=== PATIENT | female | born 1975 | race Caucasian/White ===

== ENCOUNTER 2023-12-28 18:57 | Emergency (ER) | payer MEDICARE, MEDICAID ==
[~2023-12-28] VITALS: Ht 167.6 cm; Wt 71.6 kg
[~2023-12-28 18:57] MED LIST: LEVE750T5 PO
[2023-12-28] MEDS ORDERED: OXYC1TAB23 PO (19:12)
[2023-12-28] MEDS: TAMSULOSIN 0.4 MG CAP PO ONE (22:50)
[2023-12-28] MEDS: ONDANSETRON 4MG 2ML VIAL IV ONE (23:01)
[2023-12-28] MEDS: NS 1,000 ML IV ONE (23:01)
[2023-12-28] MEDS: MORPHINE 2 MG/ML 1ML VIAL IV ONE (23:02)
[2023-12-28 23:23] LABS: BASO # 0.1 10^3/uL (0.0-0.2); BASO % 1.2 % (0.0-1.0); EOS # 0.2 10^3/uL (0.0-0.5); EOS % 2.6 % (0.0-3.0); HEMATOCRIT 34.5 % (36.0-47.0); HEMOGLOBIN 11.9 g/dl (12.0-15.5); LYMPH # 2.4 10^3/uL (1.5-5.0); LYMPH % 25.6 % (24.0-44.0); MEAN CORPUSCULAR HEMOGLOBIN 39.9 pg (27.0-33.0); MEAN CORPUSCULAR HGB CONC 34.5 g/dl (32.0-36.5); MONO % 10.4 % (2.0-8.0); NEUTROPHILS # 5.6 10^3/uL (1.5-8.5); PLATELET COUNT, AUTOMATED 418 10^3/uL (150-450); RED BLOOD COUNT 2.98 10^6/uL (4.00-5.40); WHITE BLOOD COUNT 9.3 10^3/uL (4.0-10.0)
[2023-12-28 23:24] LABS: MEAN CORPUSCULAR VOLUME 115.8 fl (80.0-96.0)
[2023-12-28 23:42] LABS: LIPASE 31 U/L (12-53)
[2023-12-28 23:44] LABS: ALBUMIN 3.8 G/DL (3.2-5.2); ALKALINE PHOSPHATASE 247 U/L (46-116); ALT/SGPT 100 U/L (7.0-40); AST/SGOT 41 U/L (<34); BILIRUBIN,DIRECT 0.1 MG/DL (<0.4); BILIRUBIN,TOTAL 0.2 MG/DL (0.3-1.2); BLOOD UREA NITROGEN 14 MG/DL (9-23); CALCIUM LEVEL 9.4 MG/DL (8.5-10.1); CARBON DIOXIDE LEVEL 28 MMOL/L (20-31); CHLORIDE LEVEL 103 MMOL/L (98-107); CREATININE FOR GFR 0.46 MG/DL (0.55-1.30); GLOMERULAR FILTRATION RATE > 60.0 (>58); GLUCOSE, FASTING 87 MG/DL (60-100); POTASSIUM SERUM 4.2 MMOL/L (3.5-5.1); SODIUM LEVEL 137 MMOL/L (136-145); TOTAL PROTEIN 7.1 G/DL (5.7-8.2)
[2023-12-29] MEDS: MORPHINE 4 MG/ML 1ML VIAL IV ONE ×2 (02:10→04:47)
[2023-12-29 05:58] LABS: BASO # 0.1 10^3/uL (0.0-0.2); BASO % 1.4 % (0.0-1.0); EOS # 0.3 10^3/uL (0.0-0.5); EOS % 3.9 % (0.0-3.0); HEMATOCRIT 32.3 % (36.0-47.0); HEMOGLOBIN 11.1 g/dl (12.0-15.5); LYMPH # 2.2 10^3/uL (1.5-5.0); LYMPH % 30.7 % (24.0-44.0); MEAN CORPUSCULAR HEMOGLOBIN 39.9 pg (27.0-33.0); MEAN CORPUSCULAR HGB CONC 34.4 g/dl (32.0-36.5); NEUTROPHILS # 3.6 10^3/uL (1.5-8.5); NEUTROPHILS % 49.7 % (36.0-66.0); PLATELET COUNT, AUTOMATED 389 10^3/uL (150-450); RED BLOOD COUNT 2.78 10^6/uL (4.00-5.40); WHITE BLOOD COUNT 7.3 10^3/uL (4.0-10.0)
[2023-12-29 06:03] LABS: MEAN CORPUSCULAR VOLUME 116.2 fl (80.0-96.0)
[2023-12-29] MEDS: diazePAM 10MG/2ML SYRINGE IV ONE (06:04)
[2023-12-29 06:29] LABS: LIPASE 27 U/L (12-53)
[2023-12-29 06:35] LABS: ALBUMIN 3.3 G/DL (3.2-5.2); ALKALINE PHOSPHATASE 219 U/L (46-116); ALT/SGPT 85 U/L (7.0-40); AST/SGOT 40 U/L (<34); BILIRUBIN,DIRECT 0.1 MG/DL (<0.4); BILIRUBIN,TOTAL 0.3 MG/DL (0.3-1.2); BLOOD UREA NITROGEN 10 MG/DL (9-23); CALCIUM LEVEL 8.9 MG/DL (8.5-10.1); CARBON DIOXIDE LEVEL 28 MMOL/L (20-31); CHLORIDE LEVEL 105 MMOL/L (98-107); CREATININE FOR GFR 0.49 MG/DL (0.55-1.30); GLOMERULAR FILTRATION RATE > 60.0 (>58); GLUCOSE, FASTING 80 MG/DL (60-100); POTASSIUM SERUM 4.2 MMOL/L (3.5-5.1); SODIUM LEVEL 138 MMOL/L (136-145); TOTAL PROTEIN 6.3 G/DL (5.7-8.2)
[2023-12-29] MEDS ORDERED: HOME MED LIST COMPLETE! XX SCH (08:00)
[2023-12-29] MEDS ORDERED: DICY-61 PO (12:28)
[2023-12-29 12:42] VITALS: BP 107/55; TEMP 97.6; O2SAT 100
== END 2023-12-29 12:45 | disposition home or self-care (01) ==
LOC: M ED 18:57
DX: R10.9 Unspecified abdominal pain (principal); N20.0 Calculus of kidney; Z98.84 Bariatric surgery status; Z87.891 Personal history of nicotine dependence; Z90.49 Acquired absence of other specified parts of digestive tract; Z79.899 Other long term (current) drug therapy; Z88.5 Allergy status to narcotic agent; Z88.8 Allergy status to other drugs, medicaments and biological substances
CPT/HCPCS: 74176; 74181; 76705; 80048; 80076; 81001; 83605; 83690; 85025; 87086; 87088; 87486; 87581; 87633; 87798; 96374; 96375; 96376; 99285; J2405; J3360

== ENCOUNTER → 2024-01-02 | Outpatient (REF) | payer MEDICARE, MEDICAID ==
[~2024-01-02] MED LIST changes: +DICY-61 PO; +OXYC1TAB23 PO
[2024-01-02 12:56] LABS: APPEARANCE, URINE HAZY (CLEAR); BACTERIA, URINE AUTO NEGATIVE (NEGATIVE); BILIRUBIN, URINE AUTO NEGATIVE (NEGATIVE); BLOOD, URINE BLOOD 3+ (NEGATIVE); COLOR, URINE YELLOW (YELLOW); GLUCOSE, URINE (UA) AUTO NEGATIVE (NEGATIVE); KETONE, URINE AUTO NEGATIVE (NEGATIVE); LEUKOCYTE ESTERASE, URINE AUTO NEGATIVE (NEGATIVE); NITRITE, URINE AUTO NEGATIVE (NEGATIVE); PROTEIN, URINE AUTO NEGATIVE (NEGATIVE); RBC, URINE AUTO TNTC /HPF (0-3); SPECIFIC GRAVITY URINE AUTO 1.016 (1.002-1.035); SQUAMOUS EPITHELIAL CELL UR AU 0 /HPF (0-6); WBC, URINE AUTO 2 /HPF (0-3)
== END ==
LOC: M SMT 12:13
PROVIDERS: ATTEND Specialist
DX: N36.8 Other specified disorders of urethra (principal); Z79.899 Other long term (current) drug therapy

== ENCOUNTER → 2024-01-09 | Outpatient (CLI) | payer MEDICARE, MEDICAID ==
[~2024-01-09] MED LIST changes: +ONDA-83 PO; +OXYC-517 PO; +PHEN1TAB73 PO; +TAMS1CAP17 PO
[2024-01-09 13:59] LABS: HEMATOCRIT 33.6 % (36.0-47.0); HEMOGLOBIN 11.3 g/dl (12.0-15.5); MEAN CORPUSCULAR HEMOGLOBIN 38.6 pg (27.0-33.0); MEAN CORPUSCULAR HGB CONC 33.6 g/dl (32.0-36.5); PLATELET COUNT, AUTOMATED 411 10^3/uL (150-450); RED BLOOD COUNT 2.93 10^6/uL (4.00-5.40); WHITE BLOOD COUNT 9.3 10^3/uL (4.0-10.0)
[2024-01-09 14:07] LABS: MEAN CORPUSCULAR VOLUME 114.7 fl (80.0-96.0)
[2024-01-09 14:28] LABS: BLOOD UREA NITROGEN 11 MG/DL (9-23); CARBON DIOXIDE LEVEL 30 MMOL/L (20-31); CHLORIDE LEVEL 103 MMOL/L (98-107); CREATININE FOR GFR 0.56 MG/DL (0.55-1.30); GLOMERULAR FILTRATION RATE > 60.0 (>58); GLUCOSE, FASTING 86 MG/DL (60-100); POTASSIUM SERUM 4.3 MMOL/L (3.5-5.1); SODIUM LEVEL 138 MMOL/L (136-145)
== END ==
LOC: M LAB 13:26
PROVIDERS: ATTEND Specialist
DX: Z01.818 Encounter for other preprocedural examination (principal); N36.8 Other specified disorders of urethra

== ENCOUNTER 2024-01-23 06:02 | Day surgery (SDC) | payer MEDICARE, MEDICAID ==
[~2024-01-23] VITALS: Ht 167.6 cm; Wt 68.0 kg
[~2024-01-23 06:02] MED LIST changes: +CYAN1000VL IM; +[UNRECOGNIZED DRUG - CODE] MC
[2024-01-23] MEDS ORDERED: LIDOCAINE 2% 100MG/5ML SDV (FOR ANES.) As Ordered ONE (06:57)
[2024-01-23] MEDS ORDERED: propofoL 200 MG/20 ML VIAL As Ordered ONE (06:57)
[2024-01-23] MEDS ORDERED: ONDANSETRON 4MG 2ML VIAL As Ordered ONE (06:57)
[2024-01-23] MEDS ORDERED: ACETAMINOPHEN 1000MG 100ML IV BAG As Ordered ONE (06:57)
[2024-01-23] MEDS ORDERED: MIDAZOLAM INJ 2MG/2ML VIAL As Ordered ONE (06:58)
[2024-01-23] MEDS ORDERED: fentaNYL 100 MCG/2 ML INJECTION As Ordered ONE (06:58)
[2024-01-23] MEDS ORDERED: LR 1,000 ML IV SCH (07:40)
[2024-01-23] MEDS: ceFAZolin SOD 2 GM in IV 1 EA IV ONE (07:45)
[2024-01-23] MEDS: ISOVUE-300 61% 100ML VIAL As Ordered ONE (08:00)
[2024-01-23] MEDS ORDERED: ONDANSETRON 4MG 2ML VIAL IV PRN (08:30)
[2024-01-23] MEDS: LR 1,000 ML IV SCH (08:32)
[2024-01-23] MEDS: fentaNYL 100 MCG/2 ML INJECTION IV PRN (08:37)
[2024-01-23] MEDS: oxyCODONE 5MG TAB PO PRN (08:40)
[2024-01-23] MEDS: HYDROMORPHONE HCL 0.5 MG/ 0.5 ML SYRINGE IV PRN (08:46)
[2024-01-23] MEDS ORDERED: MACR100C43 PO (08:49)
[2024-01-23] MEDS ORDERED: oxyCODONE 5MG TAB PO ONE (10:55)
[2024-01-23 11:28] VITALS: BP 113/61; TEMP 98.3; O2SAT 95
== END 2024-01-23 11:45 | disposition home or self-care (01) ==
LOC: M SDC 06:02
PROVIDERS: ATTEND Urology
DX: D18.09 Hemangioma of other sites (principal); N30.80 Other cystitis without hematuria; N30.10 Interstitial cystitis (chronic) without hematuria; R93.49 Abnormal radiologic findings on diagnostic imaging of other urinary organs; Z88.5 Allergy status to narcotic agent; Z88.8 Allergy status to other drugs, medicaments and biological substances; Z87.891 Personal history of nicotine dependence; Z79.899 Other long term (current) drug therapy
CPT/HCPCS: 52351; 53265; 76000; 81025; 88305; C1769; J0131; J0690; J1100; J1170; J2250; J2405; J3010; Q9967

== ENCOUNTER → 2024-02-26 | Outpatient (REF) | payer MEDICARE, MEDICAID ==
[~2024-02-26] MED LIST changes: +MACR100C43 PO
[2024-02-26 19:09] LABS: ALBUMIN 3.8 G/DL (3.2-5.2); ALKALINE PHOSPHATASE 127 U/L (46-116); ALT/SGPT 24 U/L (7.0-40); AST/SGOT 13 U/L (<34); BILIRUBIN,TOTAL 0.2 MG/DL (0.3-1.2); BLOOD UREA NITROGEN 12 MG/DL (9-23); CALCIUM LEVEL 9.5 MG/DL (8.5-10.1); CARBON DIOXIDE LEVEL 31 MMOL/L (20-31); CHLORIDE LEVEL 105 MMOL/L (98-107); CREATININE FOR GFR 0.53 MG/DL (0.55-1.30); GLOMERULAR FILTRATION RATE > 60.0 (>58); GLUCOSE, FASTING 96 MG/DL (60-100); POTASSIUM SERUM 5.2 MMOL/L (3.5-5.1); SODIUM LEVEL 139 MMOL/L (136-145); TOTAL PROTEIN 6.9 G/DL (5.7-8.2)
[2024-02-26 19:27] LABS: HEMOGLOBIN A1c 4.8 % (4.0-6.0)
== END ==
LOC: M SFHCLERA 11:50
PROVIDERS: ATTEND Family Medicine
DX: E66.3 Overweight (principal); Z79.899 Other long term (current) drug therapy

== ENCOUNTER → 2024-03-18 | Outpatient (REF) | payer MEDICARE, MEDICAID ==
[2024-03-18 18:54] LABS: APPEARANCE, URINE CLEAR (CLEAR); BACTERIA, URINE AUTO NEGATIVE (NEGATIVE); BILIRUBIN, URINE AUTO NEGATIVE (NEGATIVE); BLOOD, URINE BLOOD NEGATIVE (NEGATIVE); COLOR, URINE YELLOW (YELLOW); GLUCOSE, URINE (UA) AUTO 1+ mg/dL (NEGATIVE); KETONE, URINE AUTO NEGATIVE (NEGATIVE); LEUKOCYTE ESTERASE, URINE AUTO NEGATIVE (NEGATIVE); MUCUS, URINE SMALL (NEGATIVE); NITRITE, URINE AUTO NEGATIVE (NEGATIVE); PROTEIN, URINE AUTO NEGATIVE (NEGATIVE); RBC, URINE AUTO 0 /HPF (0-3); SPECIFIC GRAVITY URINE AUTO 1.014 (1.002-1.035); SQUAMOUS EPITHELIAL CELL UR AU 1 /HPF (0-6); UROBILINOGEN, URINE AUTO 0.2 mg/dL (0.0-2.0); WBC, URINE AUTO 1 /HPF (0-3)
== END ==
LOC: M SMT 17:06
PROVIDERS: ATTEND Urology
DX: R39.89 Other symptoms and signs involving the genitourinary system (principal)

== ENCOUNTER → 2024-03-26 | Outpatient (CLI) | payer MEDICARE, MEDICAID ==
[~2024-03-26] MED LIST changes: +ISOVUE-370 76% 100ML VIAL As Ordered ONE
== END ==
LOC: M RAD 13:49
PROVIDERS: ATTEND Urology
DX: R39.89 Other symptoms and signs involving the genitourinary system (principal); N20.0 Calculus of kidney
CPT/HCPCS: 74178; Q9967

== ENCOUNTER → 2024-04-09 | Outpatient (CLI) | payer MEDICARE, MEDICAID ==
[~2024-04-09] MED LIST changes: -ISOVUE-370 76% 100ML VIAL As Ordered ONE
== END ==
LOC: M PLAIMG 12:00
PROVIDERS: ATTEND Physician Assistant
DX: Z96.651 Presence of right artificial knee joint (principal)

== ENCOUNTER → 2024-05-03 | Outpatient (CLI) | payer MEDICARE, MEDICAID | LOC: M PLAIMG 15:22 | PROVIDERS: ATTEND Family Medicine | DX: M25.551 Pain in right hip (principal); W19.XXXS Unspecified fall, sequela ==

== ENCOUNTER → 2024-06-02 | Outpatient (REF) | payer MEDICARE, MEDICAID ==
[2024-06-02 17:50] LABS: APPEARANCE, URINE CLEAR (CLEAR); BACTERIA, URINE AUTO NEGATIVE (NEGATIVE); BILIRUBIN, URINE AUTO NEGATIVE (NEGATIVE); BLOOD, URINE BLOOD NEGATIVE (NEGATIVE); COLOR, URINE YELLOW (YELLOW); GLUCOSE, URINE (UA) AUTO 1+ mg/dL (NEGATIVE); KETONE, URINE AUTO NEGATIVE (NEGATIVE); LEUKOCYTE ESTERASE, URINE AUTO NEGATIVE (NEGATIVE); MUCUS, URINE SMALL (NEGATIVE); NITRITE, URINE AUTO NEGATIVE (NEGATIVE); PROTEIN, URINE AUTO NEGATIVE (NEGATIVE); RBC, URINE AUTO 0 /HPF (0-3); SPECIFIC GRAVITY URINE AUTO 1.013 (1.002-1.035); SQUAMOUS EPITHELIAL CELL UR AU 1 /HPF (0-6); UROBILINOGEN, URINE AUTO 0.2 mg/dL (0.0-2.0); WBC, URINE AUTO 1 /HPF (0-3)
== END ==
LOC: M SMT 16:59
PROVIDERS: ATTEND Urology
DX: N32.81 Overactive bladder (principal)

== ENCOUNTER → 2024-08-02 | Outpatient (CLI) | payer MEDICARE, MEDICAID ==
[~2024-08-02] MED LIST changes: +DEPA250T32 PO; +GASTROGRAFIN SOLUTION 30ML As Ordered ONE; +ISOVUE-370 76% 100ML VIAL As Ordered ONE
== END ==
LOC: M RAD 13:38
PROVIDERS: ATTEND Physician Assistant
DX: R19.00 Intra-abdominal and pelvic swelling, mass and lump, unspecified site (principal)
CPT/HCPCS: 74177; Q9963; Q9967

== ENCOUNTER 2024-09-15 14:38 | Emergency (ER) | payer MEDICARE, MEDICAID ==
[~2024-09-15] VITALS: Ht 167.6 cm; Wt 65.9 kg
[~2024-09-15 14:38] MED LIST changes: -GASTROGRAFIN SOLUTION 30ML As Ordered ONE; -ISOVUE-370 76% 100ML VIAL As Ordered ONE
[2024-09-15 18:39] LABS: BASO % 0.4 % (0.0-1.0); EOS % 0.2 % (0.0-3.0); HEMATOCRIT 40.6 % (36.0-47.0); HEMOGLOBIN 13.5 g/dl (12.0-15.5); LYMPH # 1.4 10^3/uL (1.5-5.0); MEAN CORPUSCULAR HEMOGLOBIN 32.1 pg (27.0-33.0); MEAN CORPUSCULAR HGB CONC 33.3 g/dl (32.0-36.5); MEAN CORPUSCULAR VOLUME 96.4 fl (80.0-96.0); MONO # 0.9 10^3/uL (0.0-0.8); MONO % 9.4 % (2.0-8.0); NEUTROPHILS # 6.8 10^3/uL (1.5-8.5); NEUTROPHILS % 74.8 % (36.0-66.0); PLATELET COUNT, AUTOMATED 372 10^3/uL (150-450); RED BLOOD COUNT 4.21 10^6/uL (4.00-5.40); WHITE BLOOD COUNT 9.1 10^3/uL (4.0-10.0)
[2024-09-15 19:11] LABS: CK-MB VALUE MASS < 1.0 NG/ML (<3.6)
[2024-09-15 19:12] LABS: CPK CREATINE PHOSPHOKINASE 25 U/L (34-145)
[2024-09-15 19:13] LABS: BLOOD UREA NITROGEN 11 MG/DL (9-23); CALCIUM LEVEL 9.3 MG/DL (8.5-10.1); CARBON DIOXIDE LEVEL 28 MMOL/L (20-31); CHLORIDE LEVEL 103 MMOL/L (98-107); CREATININE FOR GFR 0.59 MG/DL (0.55-1.30); GLOMERULAR FILTRATION RATE > 60.0 (>51); GLUCOSE, FASTING 107 MG/DL (60-100); POTASSIUM SERUM 4.3 MMOL/L (3.5-5.1); SODIUM LEVEL 137 MMOL/L (136-145)
[2024-09-15 20:27] LABS: LIPASE 65 U/L (12-53)
[2024-09-15 20:29] LABS: ALBUMIN 3.7 G/DL (3.2-5.2); ALKALINE PHOSPHATASE 137 U/L (35-104); ALT/SGPT 20 U/L (7.0-40); AST/SGOT 12 U/L (<34); BILIRUBIN,DIRECT 0.1 MG/DL (<0.4); BILIRUBIN,TOTAL 0.3 MG/DL (0.3-1.2); C REACTIVE PROTEIN QUANTITATIV 2.26 MG/DL (<1.0); TOTAL PROTEIN 7.1 G/DL (5.7-8.2)
[2024-09-15 20:35] LABS: ERYTHROCYTE SEDIMENTATION RATE 31 mm/hr (0-30)
[2024-09-15] MEDS: MORPHINE 4 MG/ML 1ML VIAL IV ONE (21:52)
[2024-09-15] MEDS: ONDANSETRON 4MG 2ML VIAL IV ONE (21:52)
[2024-09-15 22:15] LABS: KETONE, URINE AUTO RFX TRACE mg/dL (NEGATIVE); MUCUS, URINE RFX SMALL (NEGATIVE); NITRITE, URINE AUTO RFX NEGATIVE (NEGATIVE); RBC, URINE AUTO RFX 3 /HPF (0-3); SQUAM EPITHELIAL CELL UR AURFX 0 /HPF (0-6)
[2024-09-15 22:21] LABS: LEUKOCYTE ESTERASE UR AUTO RFX 2+ (NEGATIVE); WBC, URINE AUTO RFX 103 /HPF (0-3)
[2024-09-15] MEDS: HYDROMORPHONE HCL 0.5 MG/ 0.5 ML SYRINGE IV ONE (22:58)
[2024-09-16] MEDS ORDERED: GABAPENTIN 300 MG CAP PO ONE (00:20)
[2024-09-16] MEDS: METOCLOPRAMIDE INJ 10MG/2ML VIAL IV ONE (00:34)
[2024-09-16] MEDS: NITROFURANTOIN (MACROBID) 100 MG CAP PO ONE (00:34)
[2024-09-16] MEDS: HYDROMORPHONE HCL 0.5 MG/ 0.5 ML SYRINGE IV PRN (00:45)
[2024-09-16] MEDS: LevoFLOXacin 250 MG TABLET PO SCH (02:54)
[2024-09-16] MEDS ORDERED: SOLI10TA PO (03:06)
[2024-09-16] MEDS ORDERED: CYAN1000VL IM (03:06)
[2024-09-16] MEDS ORDERED: LEVOTAB10 PO (03:06)
[2024-09-16] MEDS ORDERED: TRIA1CR80 TOP (03:06)
[2024-09-16] MEDS ORDERED: TIZA2TA PO (03:06)
[2024-09-16] MEDS ORDERED: HOME MED LIST COMPLETE! XX SCH (03:10)
[2024-09-16] MEDS ORDERED: PILL CUTTER 1 EACH XX PRN (05:05)
[2024-09-16] MEDS: DIVALPROEX 250MG TAB PO SCH (06:04)
[2024-09-16] MEDS: PERCOCET 5MG/325MG TAB PO PRN (06:05)
[2024-09-16] MEDS: ONDANSETRON 4MG 2ML VIAL IV PRN (06:35)
[2024-09-16] MEDS ORDERED: ACETAMINOPHEN 325 MG TAB PO PRN (07:30)
[2024-09-16] MEDS ORDERED: MOM 30ML SUSPENSION UDC PO PRN (07:30)
[2024-09-16] MEDS ORDERED: MAALOX 30 ML SUSP *UDC PO PRN (07:30)
[2024-09-16] MEDS: DOCUSATE SODIUM 100MG CAPSULE PO SCH (09:00)
[2024-09-16] MEDS: ENOXAPARIN 40MG/0.4ML SYRINGE (J1650 PER 10MG) SC SCH (09:10)
[2024-09-16] MEDS: levETIRAcetam 250MG TABLET (KEPPRA) PO SCH (09:10)
[2024-09-16] MEDS: oxyCODONE 5MG TAB PO PRN ×2 (10:01→19:59)
[2024-09-16] MEDS: GABAPENTIN 100 MG CAP PO SCH (10:02)
[2024-09-16] MEDS: BACLOFEN 10 MG TAB PO ONE (11:20)
[2024-09-16] MEDS: MORPHINE 2 MG/ML 1ML VIAL IV ONE (12:54)
[2024-09-16] MEDS: LIDOCAINE 5% (LIDODERM) PATCH TD SCH (12:54)
[2024-09-16] MEDS ORDERED: LORazepam 0.5 MG TAB PO ONE (15:25)
[2024-09-16] MEDS ORDERED: KETOROLAC TROMETHAMINE 10 MG TAB PO PRN (16:10)
[2024-09-16] MEDS: LORazepam 2 MG/ML 1ML VIAL IV ONE (17:19)
[2024-09-16] MEDS: OMEPRAZOLE 20MG CAP PO SCH (18:09)
[2024-09-16] MEDS: LevoFLOXacin 750 MG TABLET PO SCH (18:50)
[2024-09-16] MEDS: tiZANidine 4 MG TAB PO PRN (21:47)
[2024-09-17] MEDS: ACETAMINOPHEN *IV* 500 MG in IV 1 EA IV ONE (03:44)
[2024-09-17] MEDS ORDERED: KETOROLAC 30 MG/ML 1ML VIAL IV ONE (04:00)
[2024-09-18 05:32] LABS: BASO # 0.1 10^3/uL (0.0-0.2); BASO % 0.8 % (0.0-1.0); EOS # 0.2 10^3/uL (0.0-0.5); EOS % 2.4 % (0.0-3.0); HEMATOCRIT 37.4 % (36.0-47.0); HEMOGLOBIN 12.4 g/dl (12.0-15.5); LYMPH # 2.6 10^3/uL (1.5-5.0); LYMPH % 28.4 % (24.0-44.0); MEAN CORPUSCULAR HGB CONC 33.2 g/dl (32.0-36.5); MEAN CORPUSCULAR VOLUME 96.6 fl (80.0-96.0); MONO # 1.1 10^3/uL (0.0-0.8); MONO % 12.1 % (2.0-8.0); NEUTROPHILS # 5.2 10^3/uL (1.5-8.5); NEUTROPHILS % 56.1 % (36.0-66.0); PLATELET COUNT, AUTOMATED 366 10^3/uL (150-450); RED BLOOD COUNT 3.87 10^6/uL (4.00-5.40); WHITE BLOOD COUNT 9.2 10^3/uL (4.0-10.0)
[2024-09-18 06:04] LABS: BLOOD UREA NITROGEN 12 MG/DL (9-23); C REACTIVE PROTEIN QUANTITATIV 1.23 MG/DL (<1.0); CALCIUM LEVEL 8.6 MG/DL (8.5-10.1); CARBON DIOXIDE LEVEL 31 MMOL/L (20-31); CHLORIDE LEVEL 104 MMOL/L (98-107); CREATININE FOR GFR 0.65 MG/DL (0.55-1.30); GLOMERULAR FILTRATION RATE > 60.0 (>51); GLUCOSE, FASTING 138 MG/DL (60-100); MAGNESIUM LEVEL 2.1 MG/DL (1.8-2.4); POTASSIUM SERUM 4.5 MMOL/L (3.5-5.1); SODIUM LEVEL 140 MMOL/L (136-145)
[2024-09-18] MEDS: PREGABALIN 50 MG CAP (LYRICA) PO SCH (09:04)
[2024-09-19 10:04] LABS: HEMATOCRIT 40.1 % (36.0-47.0); HEMOGLOBIN 13.1 g/dl (12.0-15.5); MEAN CORPUSCULAR HEMOGLOBIN 31.8 pg (27.0-33.0); MEAN CORPUSCULAR HGB CONC 32.7 g/dl (32.0-36.5); MEAN CORPUSCULAR VOLUME 97.3 fl (80.0-96.0); PLATELET COUNT, AUTOMATED 383 10^3/uL (150-450); RED BLOOD COUNT 4.12 10^6/uL (4.00-5.40); WHITE BLOOD COUNT 7.1 10^3/uL (4.0-10.0)
[2024-09-19] MEDS ORDERED: oxyCODONE 5MG TAB PO PRN (13:30)
[2024-09-19] MEDS: oxyCODONE 5MG TAB PO PRN (17:33)
[2024-09-20] MEDS ORDERED: LEVO75TAB PO (09:22)
[2024-09-20] MEDS ORDERED: PREG50CA PO (09:22)
[2024-09-20 13:51] VITALS: BP 104/52; TEMP 98.3; O2SAT 100
== END 2024-09-20 14:04 | disposition home or self-care (01) ==
LOC: M ED 14:38
DX: N39.0 Urinary tract infection, site not specified (principal); M79.605 Pain in left leg; R56.9 Unspecified convulsions; F41.1 Generalized anxiety disorder; F32.9 Major depressive disorder, single episode, unspecified; F17.290 Nicotine dependence, other tobacco product, uncomplicated; Z98.84 Bariatric surgery status; Z96.651 Presence of right artificial knee joint; Z86.718 Personal history of other venous thrombosis and embolism
CPT/HCPCS: 36415; 71046; 72148; 73521; 73564; 73590; 73630; 80048; 80076; 81001; 82550; 82553; 83690; 83735; 84484; 85025; 85027; 85652; 86140; 87088; 87186; 87486; 87581; 87633; 87798; 93005; 93971; 96372; 96374; 96375; 96376; 97116; 97161; 97165; 97530; 97535; 99285; J0131; J1171; J1650; J2060; J2405; J2765

== ENCOUNTER 2024-11-23 13:01 | Emergency (ER) | payer MEDICARE, MEDICAID ==
[~2024-11-23] VITALS: Ht 170.2 cm; Wt 66.6 kg
[~2024-11-23 13:01] MED LIST changes: +LEVO75TAB PO; +LEVOTAB10 PO; +ONDA-282 PO; +PREG50CA PO; +SOLI10TA PO; +TIZA2TA PO; +TRIA1CR80 TOP
[2024-11-23] MEDS: METOCLOPRAMIDE INJ 10MG/2ML VIAL IV ONE (14:07)
[2024-11-23] MEDS: MORPHINE 4 MG/ML 1ML VIAL IV PRN (14:08)
[2024-11-23] MEDS: PANTOPRAZOLE 40MG VIAL IV ONE (14:08)
[2024-11-23 14:19] LABS: BASO # 0.1 10^3/uL (0.0-0.2); BASO % 0.8 % (0.0-1.0); EOS # 0.1 10^3/uL (0.0-0.5); EOS % 1.5 % (0.0-3.0); HEMOGLOBIN 13.2 g/dl (12.0-15.5); LYMPH # 2.4 10^3/uL (1.5-5.0); LYMPH % 27.6 % (24.0-44.0); MEAN CORPUSCULAR HEMOGLOBIN 31.9 pg (27.0-33.0); MEAN CORPUSCULAR HGB CONC 32.2 g/dl (32.0-36.5); MONO # 0.9 10^3/uL (0.0-0.8); MONO % 9.8 % (2.0-8.0); NEUTROPHILS # 5.3 10^3/uL (1.5-8.5); PLATELET COUNT, AUTOMATED 389 10^3/uL (150-450); RED BLOOD COUNT 4.14 10^6/uL (4.00-5.40); WHITE BLOOD COUNT 8.8 10^3/uL (4.0-10.0)
[2024-11-23 14:24] LABS: LIPASE 69 U/L (12-53)
[2024-11-23 14:27] LABS: ALBUMIN 3.8 G/DL (3.2-5.2); ALKALINE PHOSPHATASE 104 U/L (35-104); ALT/SGPT 18 U/L (7.0-40); AST/SGOT 14 U/L (<34); BILIRUBIN,DIRECT 0.1 MG/DL (<0.4); BILIRUBIN,TOTAL 0.3 MG/DL (0.3-1.2); BLOOD UREA NITROGEN 15 MG/DL (9-23); CALCIUM LEVEL 9.6 MG/DL (8.5-10.1); CARBON DIOXIDE LEVEL 29 MMOL/L (20-31); CHLORIDE LEVEL 106 MMOL/L (98-107); CK-MB VALUE MASS < 1.0 NG/ML (<3.6); CREATININE FOR GFR 0.58 MG/DL (0.55-1.30); GLOMERULAR FILTRATION RATE > 60.0 (>51); GLUCOSE, FASTING 91 MG/DL (60-100); POTASSIUM SERUM 4.5 MMOL/L (3.5-5.1); SODIUM LEVEL 141 MMOL/L (136-145); TOTAL PROTEIN 7.4 G/DL (5.7-8.2)
[2024-11-23 14:28] LABS: THYROID STIMULATING HORMONE 1.234 uIU/ML (0.55-4.78)
[2024-11-23 14:29] LABS: FREE T4 1.12 NG/DL (0.89-1.76)
[2024-11-23] MEDS ORDERED: ISOVUE-370 76% 100ML VIAL As Ordered ONE (14:35)
[2024-11-23 14:37] LABS: CPK CREATINE PHOSPHOKINASE 35 U/L (34-145); MB/CK RELATIVE INDEX 2.85 (< OR =4)
[2024-11-23 14:59] LABS: VALPROIC ACID (DEPAKOTE) < 3.0 UG/ML (50.0-100.0)
[2024-11-23 15:53] LABS: CK-MB VALUE MASS < 1.0 NG/ML (<3.6)
[2024-11-23 15:54] LABS: CPK CREATINE PHOSPHOKINASE 31 U/L (34-145); MB/CK RELATIVE INDEX 3.22 (< OR =4)
[2024-11-23] MEDS: SUCRALFATE SUSP 1GM/10ML UD PO ONE (16:16)
[2024-11-23] MEDS: MAALOX 30 ML SUSP *UDC PO ONE (16:16)
[2024-11-23] MEDS ORDERED: PANT40TA29 PO (16:26)
[2024-11-23] MEDS ORDERED: SUCR1SS PO (16:26)
[2024-11-23 16:44] VITALS: BP 120/55; TEMP 98.2; O2SAT 99
== END 2024-11-23 16:59 | disposition home or self-care (01) ==
LOC: M ED 13:01
DX: K29.00 Acute gastritis without bleeding (principal); F41.9 Anxiety disorder, unspecified; F32.9 Major depressive disorder, single episode, unspecified; R56.9 Unspecified convulsions; Z98.84 Bariatric surgery status; F17.290 Nicotine dependence, other tobacco product, uncomplicated; F12.10 Cannabis abuse, uncomplicated; Z88.5 Allergy status to narcotic agent; Z88.8 Allergy status to other drugs, medicaments and biological substances
CPT/HCPCS: 71045; 71260; 74177; 80048; 80076; 80164; 82550; 82553; 83690; 84439; 84443; 84484; 85025; 93005; 93041; 94760; 96374; 96375; 96376; 99285; J2470; J2765; Q9967

== ENCOUNTER → 2024-12-09 | Outpatient (CLI) | payer MEDICARE, OTHER ==
[~2024-12-09] MED LIST changes: +DIVA250T67; +PANT40TA29 PO; +SUCR1SS PO
== END ==
LOC: M RAD 07:36
PROVIDERS: ATTEND Internal Medicine Medical Oncology
DX: Z53.9 Procedure and treatment not carried out, unspecified reason (principal)

== ENCOUNTER 2025-03-08 13:50 | Inpatient (IN) | payer MEDICARE, MEDICAID ==
[~2025-03-08] VITALS: Ht 170.2 cm; Wt 72.8 kg
[~2025-03-08 13:50] MED LIST changes: -DEPA250T32 PO; +DIVA-65 PO; -PREG50CA PO; +PREG50CA87 PO
[2025-03-08 15:11] LABS: BASO # 0.1 10^3/uL (0.0-0.2); BASO % 0.4 % (0.0-1.0); EOS # 0.1 10^3/uL (0.0-0.5); EOS % 0.6 % (0.0-3.0); LYMPH # 1.3 10^3/uL (1.5-5.0); LYMPH % 9.7 % (24.0-44.0); MONO # 1.1 10^3/uL (0.0-0.8); MONO % 8.4 % (2.0-8.0); NEUTROPHILS # 10.9 10^3/uL (1.5-8.5); NEUTROPHILS % 80.5 % (36.0-66.0); PLATELET COUNT, AUTOMATED 234 10^3/uL (150-450)
[2025-03-08 15:19] LABS: ERYTHROCYTE SEDIMENTATION RATE 32 mm/hr (0-30)
[2025-03-08 15:39] LABS: CALCIUM LEVEL 8.4 MG/DL (8.5-10.1); CARBON DIOXIDE LEVEL 30 MMOL/L (20-31); CHLORIDE LEVEL 100 MMOL/L (98-107); CREATININE FOR GFR 0.50 MG/DL (0.55-1.30); GLOMERULAR FILTRATION RATE > 90.0 (>51); POTASSIUM SERUM 3.9 MMOL/L (3.5-5.1); SODIUM LEVEL 139 MMOL/L (136-145)
[2025-03-08 15:40] LABS: C REACTIVE PROTEIN QUANTITATIV 18.85 MG/DL (<1.0)
[2025-03-08] MEDS: MORPHINE 2 MG/ML 1 ML VIAL IV ONE (16:43)
[2025-03-08] MEDS: cefTRIAXone SOD 1 GM in DEXTROSE 5% (D5W) ADV/MINI-BAG 50 ML IV ONE ×2 (16:43→17:30)
[2025-03-08] MEDS ORDERED: OXYC10TA12 PO (17:03)
[2025-03-08] MEDS ORDERED: VENL75CA47 PO (17:03)
[2025-03-08] MEDS ORDERED: CYAN100017 INJ (17:03)
[2025-03-08] MEDS ORDERED: HOME MED LIST COMPLETE! XX SCH (17:05)
[2025-03-08] MEDS ORDERED: ISOVUE-370 76% 100 ML VIAL As Ordered ONE (17:43)
[2025-03-08] MEDS ORDERED: ONDANSETRON 4MG 2ML VIAL IV PRN (17:50)
[2025-03-08] MEDS ORDERED: PILL CUTTER 1 EACH XX PRN (18:05)
[2025-03-08] MEDS: LR 1,000 ML IV ONE (19:14)
[2025-03-08] MEDS: FUROSEMIDE 40 MG/4 ML VIAL IV ONE (19:14)
[2025-03-08] MEDS: PANTOPRAZOLE 40MG VIAL IV SCH (19:14)
[2025-03-08] MEDS: PERCOCET 5MG/325MG TAB PO PRN (19:15)
[2025-03-08 21:00] VITALS: BP 91/41; TEMP 98.9; O2SAT 96
[2025-03-08] MEDS: VANCOMYCIN HCL 1,500 MG, VIAL MATE ADAPTER 1 EACH in NS 500 ML IV ONE (21:55)
[2025-03-09 04:40] VITALS: BP 88/54; TEMP 98.5; O2SAT 100
[2025-03-09] MEDS: VANCOMYCIN HCL 1,000 MG, VIAL MATE ADAPTER 1 EACH in NS 250 ML IV SCH (05:17)
[2025-03-09 06:30] VITALS: BP 85/53
[2025-03-09 06:45] LABS: PLATELET COUNT, AUTOMATED 230 10^3/uL (150-450)
[2025-03-09 07:05] LABS: CALCIUM LEVEL 8.1 MG/DL (8.5-10.1); CARBON DIOXIDE LEVEL 31 MMOL/L (20-31); CHLORIDE LEVEL 103 MMOL/L (98-107); CREATININE FOR GFR 0.48 MG/DL (0.55-1.30); GLOMERULAR FILTRATION RATE > 90.0 (>51); POTASSIUM SERUM 3.8 MMOL/L (3.5-5.1); SODIUM LEVEL 140 MMOL/L (136-145)
[2025-03-09] MEDS: LR 1,000 ML IV ONE (08:02)
[2025-03-09] MEDS: VENLAFAXINE **XR** 75MG CAPSULE PO SCH (08:44)
[2025-03-09] MEDS: cefTRIAXone SOD 2 GM in DEXTROSE 5% (D5W) ADV/MINI-BAG 50 ML IV SCH (10:05)
[2025-03-09] MEDS: ENOXAPARIN 40 MG/0.4 ML SYRINGE (J1650 PER 10MG) SC SCH (10:19)
[2025-03-09 11:04] LABS: C REACTIVE PROTEIN QUANTITATIV 18.37 MG/DL (<1.0)
[2025-03-09 12:05] VITALS: BP 86/52
[2025-03-09] MEDS: NS 500 ML IV ONE (12:17)
[2025-03-09 12:54] VITALS: BP 96/52
[2025-03-09] MEDS: PERCOCET 5MG/325MG TAB PO PRN (12:56)
[2025-03-09] MEDS: BISACODYL 10 MG SUPP PR ONE (13:40)
[2025-03-09 14:25] LABS: VANCOMYCIN LEVEL TROUGH 7.4 UG/ML (10.0-20.0)
[2025-03-09 14:26] LABS: IRON (FE) 19.0 UG/DL (50-170); PERCENT SATURATION 10.1 % (13.2-45.0)
[2025-03-09 14:29] LABS: VITAMIN B12 LEVEL 102.0 PG/ML (211-911)
[2025-03-09] MEDS: SENNOSIDES/DOCUSATE SODIUM 8.6 MG/50MG TAB PO SCH (14:53)
[2025-03-09] MEDS: CYANOCOBALAMIN 1,000 MCG/ML 1 ML VIAL IM SCH (17:33)
[2025-03-09 17:38] VITALS: BP 90/58
[2025-03-09] MEDS: DIVALPROEX 250 MG TAB PO SCH (20:51)
[2025-03-09 21:13] VITALS: BP 89/53; TEMP 97.6; O2SAT 97
[2025-03-10 05:52] VITALS: BP 85/59; TEMP 97.1; O2SAT 96
[2025-03-10 06:07] LABS: VANCOMYCIN LEVEL TROUGH 13.0 UG/ML (10.0-20.0)
[2025-03-10 06:21] LABS: C REACTIVE PROTEIN QUANTITATIV 10.44 MG/DL (<1.0); CALCIUM LEVEL 8.1 MG/DL (8.5-10.1); CARBON DIOXIDE LEVEL 30 MMOL/L (20-31); CHLORIDE LEVEL 107 MMOL/L (98-107); CREATININE FOR GFR 0.48 MG/DL (0.55-1.30); GLOMERULAR FILTRATION RATE > 90.0 (>51); POTASSIUM SERUM 4.8 MMOL/L (3.5-5.1); SODIUM LEVEL 144 MMOL/L (136-145)
[2025-03-10 07:43] LABS: BASO # 0.1 10^3/uL (0.0-0.2); BASO % 0.7 % (0.0-1.0); EOS # 0.4 10^3/uL (0.0-0.5); EOS % 5.0 % (0.0-3.0); LYMPH # 1.7 10^3/uL (1.5-5.0); LYMPH % 22.2 % (24.0-44.0); MONO # 0.8 10^3/uL (0.0-0.8); MONO % 10.9 % (2.0-8.0); NEUTROPHILS # 4.5 10^3/uL (1.5-8.5); NEUTROPHILS % 60.9 % (36.0-66.0); PLATELET COUNT, AUTOMATED 230 10^3/uL (150-450)
[2025-03-10 07:53] VITALS: BP 90/50
[2025-03-10] MEDS ORDERED: CYAN100017 INJ (10:24)
[2025-03-10] MEDS ORDERED: PROT1TAB2 PO (10:24)
[2025-03-10] MEDS ORDERED: MIRA3350 PO (10:24)
[2025-03-10] MEDS ORDERED: COLA100C5 PO (10:24)
[2025-03-10] MEDS ORDERED: MUPI2OI TOP (10:24)
[2025-03-10] MEDS ORDERED: DOXY-440 PO (10:24)
[2025-03-10] MEDS ORDERED: CEFD1CAP9 PO (10:24)
[2025-03-10 12:30] VITALS: BP 90/59; TEMP 96.8; O2SAT 96
[2025-03-10] MEDS ORDERED: SODIUM CHLORIDE 0.9% INJ 10 ML SYR IV PRN (13:50)
[2025-03-10] MEDS ORDERED: HEPARIN LOCK FLUSH 100 UNITS/ML 3 ML SYRINGE IV PRN (13:50)
[2025-03-10] MEDS: SODIUM CHLORIDE 0.9% INJ 10 ML SYR IV SCH (14:36)
[2025-03-10] MEDS: HEPARIN LOCK FLUSH 100 UNITS/ML 3 ML SYRINGE IV SCH (14:36)
== END 2025-03-10 14:52 | disposition home or self-care (01) | DRG 603 ==
LOC: M ED 13:50 → M ED INP 17:27 → M MS5PR 21:00
PROVIDERS: ADMIT Internal Medicine; ATTEND Internal Medicine
DX: L03.115 Cellulitis of right lower limb (principal); F41.9 Anxiety disorder, unspecified; F32.9 Major depressive disorder, single episode, unspecified; G89.4 Chronic pain syndrome; G40.909 Epilepsy, unspecified, not intractable, without status epilepticus; R60.0 Localized edema; K43.2 Incisional hernia without obstruction or gangrene; E53.8 Deficiency of other specified B group vitamins; D53.9 Nutritional anemia, unspecified; Z79.899 Other long term (current) drug therapy; Z88.5 Allergy status to narcotic agent; Z88.8 Allergy status to other drugs, medicaments and biological substances; Z86.14 Personal history of Methicillin resistant Staphylococcus aureus infection; Z98.84 Bariatric surgery status; Z91.048 Other nonmedicinal substance allergy status; Z90.49 Acquired absence of other specified parts of digestive tract

== ENCOUNTER → 2025-04-18 | Outpatient (REF) | payer MEDICARE, MEDICAID ==
[~2025-04-18] MED LIST changes: +CEFD1CAP9 PO; +COLA100C5 PO; +CYAN100017 INJ; +DOXY-440 PO; +MIRA3350 PO; +MUPI2OI TOP; +OXYC10TA12 PO; +PROT1TAB2 PO; +VENL75CA47 PO
[2025-04-18 19:03] LABS: APPEARANCE, URINE CLEAR (CLEAR); BACTERIA, URINE AUTO NEGATIVE (NEGATIVE); BILIRUBIN, URINE AUTO NEGATIVE (NEGATIVE); BLOOD, URINE BLOOD NEGATIVE (NEGATIVE); GLUCOSE, URINE (UA) AUTO NEGATIVE (NEGATIVE); KETONE, URINE AUTO NEGATIVE (NEGATIVE); LEUKOCYTE ESTERASE, URINE AUTO NEGATIVE (NEGATIVE); NITRITE, URINE AUTO NEGATIVE (NEGATIVE); PROTEIN, URINE AUTO NEGATIVE (NEGATIVE); RBC, URINE AUTO 0 /HPF (0-3); SPECIFIC GRAVITY URINE AUTO 1.004 (1.002-1.035); SQUAMOUS EPITHELIAL CELL UR AU 0 /HPF (0-6); UROBILINOGEN, URINE AUTO 0.2 mg/dL (0.0-2.0); WBC, URINE AUTO 0 /HPF (0-3)
== END ==
LOC: M SMT 16:54
PROVIDERS: ATTEND Urology
DX: N32.81 Overactive bladder (principal)

== ENCOUNTER → 2025-05-23 | Outpatient (CLI) | payer MEDICARE, OTHER | LOC: M RAD 11:48 | PROVIDERS: ATTEND Family Medicine | DX: E04.1 Nontoxic single thyroid nodule (principal) ==